=== PATIENT | female | born 1960 | race Caucasian/White ===

== ENCOUNTER → 2019-06-26 | Outpatient (CLI) | payer OTHER | LOC: RAD 11:30 | DX: N64.4 Mastodynia (principal) ==

== ENCOUNTER → 2019-07-18 | Outpatient (CLI) | payer OTHER | LOC: BC 14:33 | DX: N60.02 Solitary cyst of left breast (principal) ==

== ENCOUNTER → 2019-11-05 | Outpatient (CLI) | payer OTHER ==
--- NOTE | 2019-11-08 12:04 | SLE ---
[facility] [place] [address] POLYSOMNOGRAPHY STUDY Name: ROSIBEL PERALTA Room #: [facility]#: [id number] Admission: 11/05/19 Attend Phys: Jarad Lopez MD Discharge: Date of : 56 Report #: [id number] THIS REPORT FOR: //name// CC: Jarad V[facility]quez [facility] [place] Butler MD DATE OF SERVICE: 11/05/2019 SLEEP STUDY ATTENDING PHYSICIAN: Dr. Shai Butler. The patient is a 59-year-old who weighs 179 pounds with a BMI of 30.7. The patient's Selma score was 11. The patient underwent in-lab diagnostic sleep study performed at [facility]. During the night study, the patient spent 458 minutes in bed and slept for 333 minutes with a sleep efficiency of 72%. Sleep latency was 5.7 minutes with a REM latency of 209 minutes. Sleep architecture showed normal stage 1 sleep, increased stage 2 sleep, normal slow wave and reduced REM sleep, which was 13% of total sleep time. During the night study, the patient had 11 obstructive apneas, no mixed apneas, 1 central apnea and 47 hypopneas. The patient's AHI was 10.6 per hour with a REM AHI of 48.3 per hour and a supine AHI of 10.7 per hour. EKG monitoring revealed an average heart rate of 68 beats per minute. Occasional PVCs seen. No sustained arrhythmias observed. No clinically significant PLM seen. Nocturnal oximetry study revealed an average oxygen saturation of 95% with a lowest of 74%. Fifteen minutes were spent in oxygen saturation less than 89%. Due to low AHI, the patient did not meet the split night criteria for CPAP initiation. IMPRESSION: 1. Mild obstructive sleep apnea with worsening during REM sleep. Total AHI of 10.6 per hour with a REM AHI of 48 per hour. 2. Nocturnal hypoxia secondary to obstructive sleep apnea. 3. No clinically significant periodic limb movements. RECOMMENDATIONS: 1. The patient is clinically symptomatic with an Selma score of 11. [facility] [address] [place] [address] POLYSOMNOGRAPHY STUDY Name: FABIAN,DEBRA Y Room #: [facility]#: [id number] Admission: 11/05/19 Attend Phys: Jarad Lopez MD Discharge: Date of : 56 Report #: [id number] patient would benefit from treatment of sleep apnea with either CPAP versus oral appliance. 2. Weight loss is strongly advised. 3. Avoid HOME HEALTH NURSE depressants. 4. Once the patient is optimally treated, then follow up in 4-6 weeks to assess compliance with treatment and to document clinical improvement. 5. Cautioned regarding driving until the patient's hypersomnia is resolved with the above recommendations. <ELECTRONICALLY SIGNED> By: Jarad Lopez MD 11/08/19 1204 [id number] Jarad Lopez MD /gracy
== END ==
LOC: SLEEPLAB 08:55
DX: G47.33 Obstructive sleep apnea (adult) (pediatric) (principal)

== ENCOUNTER → 2020-03-09 | Outpatient (CLI) | payer OTHER | LOC: ULTRA 12:13 → RAD 13:09 → ULTRA 13:09 | PROVIDERS: ATTEND Nurse Practitioner | DX: Z12.31 Encounter for screening mammogram for malignant neoplasm of breast (principal) ==